=== PATIENT | male | born 1955 ===

== ENCOUNTER → 2017-09-28 | Day surgery (SDC) | payer OTHER ==
[~2017-09-28] MED LIST: COZAAR50 MG; LANSOPRAZOLE30 MG PO; LOSARTAN POTASS50 MG PO; METOPROLOL SUCC50 MG PO; PLAVIX75 MG; PLAVIX75 MG PO; TRICOR145 MG PO; VYTORIN 10-40 M1 TAB; VYTORIN 10-401 EACH PO
== END | disposition home or self-care (01) ==
LOC: ADM 09-21 07:30 → CIR.AMB 05:55
DX: K40.30 Unilateral inguinal hernia, with obstruction, without gangrene, not specified as recurrent (principal)